=== PATIENT | female | born 2005 | race Caucasian/White ===

== ENCOUNTER 2024-11-23 23:52 | Emergency (ER) | payer SELFPAY ==
--- NOTE | ~2024-11-23 | CT_ITS ---
EXAMINATION: CT brain wo con COMPARISON: None HISTORY: head injury TECHNIQUE: Axial images were obtained through the brain without IV contrast. CT scan performed using dose optimization techniques including the following automated exposure control; adjustment of mA and/or kV; use of iterative reconstruction technique. Automatic exposure control was used to reduce radiation dose. Permanent radiation dose record is archived to PACS. FINDINGS: No acute infarct or parenchymal hemorrhage. No abnormal mass or mass effect. No midline shift. No extra-axial fluid collections. No hydrocephalus. . Mastoid air cells unremarkable. Sinuses and orbits unremarkable. No acute fracture. No significant facial or scalp soft tissue swelling evident. No radiopaque foreign body is seen. Impression: 1.No acute intracranial abnormality. Reviewed, dictated and finalized at location A. Impression: 1.No acute intracranial abnormality.
[2024-11-23 23:52] VITALS: BP 135/88; PULSE 86; RESP 16; TEMP 37.3; O2SAT 100
--- NOTE | 2024-11-24 01:35 | ED.WOUNDLAC ---
HPI - Wound/Laceration General Chief Complaint: Wound/Laceration Stated Complaint: right forehead wound Time Seen by Provider: 11/24/24 01:29 Source: patient Mode of arrival: ambulatory Limitations: no limitations History of Present Illness HPI narrative: This is a 18 year old female that presents to the ER for a head injury earlier today. Reports she accidentally hit her head on a shelf. Reports laceration to the right scalp. Reports a headache. Reports history of migraines. She is up to date on tetanus vaccination. Denies vision changes, vomiting, focal numbness or weakness. Related Data Home Medications ?Medication ?Instructions ?Recorded ?Confirmed ?Last Taken ?Type No Home Medications 11/23/24 11/23/24 Unknown History Allergies Allergy/AdvReac Type Severity Reaction Status Date / Time No Known Allergies Allergy Verified 11/23/24 23:55 Review of Systems Review of Systems: All systems reviewed & are unremarkable except as noted in HPI and below PMFSH Social History Social History (System 07/15/23 @ 08:37 by Jose Lozada) Second hand tobacco smoke exposure: No Exam Narrative: GENERAL: Well-appearing, well-nourished, and in no acute distress. HEAD: Normocephalic. 1cm skin avulsion to the right parietal scalp EYES: PERRLA and EOMI. ENT: Nares clear, no rhinorrhea or epistaxis. Mucous membranes moist. Oropharynx without tonsillar hypertrophy exudate or other lesions. Bilateral TMs pearly carpenter non-bulging NECK: Supple. No adenopathy or masses. CHEST: Clear to auscultation. No respiratory distress. No wheezes rales or rhonchi HEART: Regular rate and rhythm. No murmur heard. Normal peripheral pulses. EXTREMITIES: Normal range of motion. No edema. SKIN: Warm, dry, no rash. NEURO: No focal deficits. Alert and oriented x3. CN II-XII grossly intact PSYCH: Normal mood and affect Course Vital Signs Vital signs: Vital Signs Temperature 99.1 F 11/23/24 23:52 Pulse Rate 86 11/23/24 23:52 Respiratory Rate 16 11/23/24 23:52 Blood Pressure 135/88 11/23/24 23:52 Pulse Oximetry 100 11/23/24 23:52 Oxygen Delivery Room Air 11/23/24 23:52 Temperature 99.1 F 11/23/24 23:52 Pulse Rate 86 11/23/24 23:52 Respiratory Rate 16 11/23/24 23:52 Blood Pressure 135/88 11/23/24 23:52 Pulse Oximetry 100 11/23/24 23:52 Oxygen Delivery Room Air 11/23/24 23:52 Procedures Laceration Laceration 1: Date: 11/24/24 Time: 03:17 Site: scalp Side (If applicable): right Size (cm): 1 Description: other (skin avulsion) Depth: simple, single layer Pre-repair: irrigated ====== Skin Level ====== ====== Subcutaneous Layer ====== ====== Muscle Layer ====== ====== Tendon Layer ====== Dressing: Wound cleansed and covered with antibiotic ointment MDM - Wound/Laceration MDM Narrative Medical decision making narrative: Patient presents to the emergency department after a head injury today with headache. She is neurologically intact. Her vitals are stable. CT brain without acute findings. Patient had a small skin avulsion to the scalp. This was cleansed and covered with antibiotic ointment. She is to follow up with provider. She was given warnings to return to the ER Differential Diagnosis Differential diagnosis: Likely laceration, abrasion and avulsion of skin Imaging Data Radiologist's impression: CT brain: No hemorrhage, hydrocephalus, mass effect or herniation. Bones are unremarkable Critical Care Time Critical Care Time Critical Care Time: No Discharge Plan Discharge Clinical Impression: Laceration Head injury Qualifiers: Encounter type: initial encounter Qualified Code(s): S09.90XA - Unspecified injury of head, initial encounter Patient Disposition: Home Condition: Improved Instructions: Laceration (ED), Head Injury (ED) Additional Instructions: Return to the emergency department if you experience fever, redness or swelling of your wound, abnormal drainage from your wound, vision changes, vomiting, or any other symptoms that are concerning to you. He may let the water run over your wound in the shower. Avoid harsh scrubbing to the area. Apply antibiotic ointment daily. Tylenol or ibuprofen as needed for pain Follow-up with primary care doctor Patient Language: Luxembourger Prescriptions: No Action No Home Medications Follow-up/Referrals: PHYSICIAN,HEAD START COORDINATOR [Primary Care Provider, Internal Medicine] Zack Og MD [Physician, Family Practice]
[2024-11-24] MEDS: ACETAMINOPHEN 500 MG TABLET 1000 MG PO (01:46)
[2024-11-24] MEDS: METOCLOPRAMIDE HCL INJ 10 MG/2 ML VIAL IV PUSH (01:47)
[2024-11-24] MEDS: SODIUM CHLORIDE 0.9% IV 1,000 ML 999 ML IV CONT (01:47)
[2024-11-24 03:14] VITALS: BP 122/77; PULSE 64; RESP 18; O2SAT 100
== END 2024-11-24 03:14 | disposition home or self-care (01) ==
PROVIDERS: Emergency Provider Physician Assistant
DX: S01.81XA Laceration without foreign body of other part of head, initial encounter (principal); W45.8XXA Other foreign body or object entering through skin, initial encounter
CPT/HCPCS: 70450; 96361; 96374; 96375; 99284; A9270; J1200; J2765; J7030